=== PATIENT | female | born 1950 | race Caucasian/White ===

== ENCOUNTER 2022-04-23 05:55 | Day surgery (SDC) | payer OTHER ==
[~2022-04-23 05:55] MED LIST: ULTRACET PO
[2022-04-23] MEDS ORDERED: MACROBID 100 M100 MG PO (09:29)
[2022-04-23] MEDS ORDERED: ULTRACET PO (09:29)
== END 2022-04-23 13:50 | disposition home or self-care (01) ==
LOC: CIR.AMB 05:55
PROVIDERS: ATTEND Obstetrics & Gynecology Gynecology
DX: N81.11 Cystocele, midline (principal); N81.12 Cystocele, lateral; Z20.822 Contact with and (suspected) exposure to COVID-19; N81.5 Vaginal enterocele; I10 Essential (primary) hypertension; E11.9 Type 2 diabetes mellitus without complications; R42 Dizziness and giddiness; M19.90 Unspecified osteoarthritis, unspecified site